=== PATIENT | male | born 1950 | race Caucasian/White ===

== ENCOUNTER 2017-08-10 13:24 | Day surgery (SDC) | payer MEDICARE ==
[~2017-08-10] VITALS: Ht 177.8 cm; Wt 84.6 kg
[~2017-08-10 13:24] MED LIST: Baclofen20 MG PO; CALCIUM PO; CHOL10002 PO; Calcium + Vita1 EACH PO; Curcumin1 GM PO; FISH OIL 1,0001 EAC1 PO; IBU800 MG PO; IBUP800 PO; OXYACE5T PO; PENICILLIN PO; Stool Softener100 MG; VITAMIN B 12 PO; VITAMIN B125000 MCG PO
[2017-08-10] MEDS ORDERED: Fish Oil 10001000 MG (14:07)
== END 2017-08-10 15:40 | disposition home or self-care (01) ==
LOC: ORSCSDS 13:24
PROVIDERS: Surgery
PROC: 0DBK8ZX Excision of Ascending Colon, Via Natural or Artificial Opening Endoscopic, Diagnostic (ICD-10-PCS; principal; 2017-08-10 14:45)
DX: Z12.11 Encounter for screening for malignant neoplasm of colon (principal); D12.2 Benign neoplasm of ascending colon; K64.8 Other hemorrhoids; Z87.891 Personal history of nicotine dependence
CPT/HCPCS: 88305; J7120

== ENCOUNTER → 2022-05-29 | Outpatient (CLI) | payer MEDICARE ==
[~2022-05-29] MED LIST changes: +Fish Oil 10001000 MG
== END | disposition home or self-care (01) ==
LOC: LAB SHORT 14:04 → LAB 14:04
DX: L03.115 Cellulitis of right lower limb (principal)
CPT/HCPCS: 87070; 87077; 87147; 87186; 87205

== ENCOUNTER 2022-12-28 17:58 | Emergency (ER) | payer MEDICARE, OTHER ==
[~2022-12-28] VITALS: Ht 180.3 cm; Wt 83.0 kg
[~2022-12-28 17:58] MED LIST changes: +CYCL10 PO
[2022-12-28 18:19] VITALS: BP 131/71
[2022-12-28] MEDS ORDERED: HYDR1TAB94 PO (19:20)
== END 2022-12-28 19:35 | disposition home or self-care (01) ==
LOC: ER 17:58
DX: S01.312A Laceration without foreign body of left ear, initial encounter (principal); S00.01XA Abrasion of scalp, initial encounter; S00.81XA Abrasion of other part of head, initial encounter; W01.190A Fall on same level from slipping, tripping and stumbling with subsequent striking against furniture, initial encounter; Z79.899 Other long term (current) drug therapy
CPT/HCPCS: 12015; 99283-25; A9270

== ENCOUNTER 2023-09-22 08:48 | Emergency (ER) | payer MEDICARE ==
[~2023-09-22] VITALS: Ht 180.3 cm; Wt 81.7 kg
[~2023-09-22 08:48] MED LIST changes: +HYDR1TAB94 PO
[2023-09-22 08:53] VITALS: BP 145/112
== END 2023-09-22 09:50 | disposition home or self-care (01) ==
LOC: ER 08:48
DX: S01.01XA Laceration without foreign body of scalp, initial encounter (principal); W16.012A Fall into swimming pool striking water surface causing other injury, initial encounter; Z79.899 Other long term (current) drug therapy
CPT/HCPCS: 12002; 99283-25